=== PATIENT | male | born 2000 | race Caucasian/White ===

== ENCOUNTER 2020-01-19 12:29 | Emergency (ER) | payer BC ==
[~2020-01-19] VITALS: Ht 185.4 cm; Wt 60.0 kg
[2020-01-19] MEDS ORDERED: bisacodyl 5mg tablet.DR PO ONE (13:15)
[2020-01-19] MEDS ORDERED: ketorolac trometh. 30mg/ml inj. IM ONE (13:15)
[2020-01-19] MEDS ORDERED: ketorolac trometh inj. 60 MG/2 ML VIAL IM ONE (13:15)
[2020-01-19] MEDS ORDERED: acetaminophen 325mg tablet PO ONE (13:15)
[2020-01-19] MEDS ORDERED: ondansetron 4mg rapidly disintigrating tab PO ONE (13:15)
[2020-01-19 13:25] LABS: BASOPHILS % (AUTO) 0.4 % (0-1); EOSINOPHILS % (AUTO) 0.4 % (0-6); HEMATOCRIT 47.2 % (42.0-52.0); LYMPHOCYTES % (AUTO) 23.1 % (21-51); MEAN CORPUSCULAR HEMOGLOBIN 28.3 PG (27.0-31.0); MEAN CORPUSCULAR HGB CONC 33.8 g/dL (33.0-36.5); MEAN CORPUSCULAR VOLUME 83.8 FL (78-98); MEAN PLATELET VOLUME 7.6 FL (7.4-10.4); MONOCYTES # (AUTO) 0.9 X10'3 (0-0.9); MONOCYTES % (AUTO) 10.1 % (2-12); NEUTROPHILS # (AUTO) 5.6 X10'3 (1.8-7.7); PLATELET COUNT 300 X10'3 (140-440); RED BLOOD COUNT 5.64 X10'6 (4.70-6.10); RED CELL DISTRIBUTION WIDTH 13.4 % (11.5-14.5); WHITE BLOOD COUNT 8.5 X10'3 (4.5-11.0)
[2020-01-19 13:40] LABS: ALANINE AMINOTRANSFERASE 56 U/L (12-78); ALBUMIN 4.5 G/DL (3.4-5.0); ALBUMIN/GLOBULIN RATIO 1.2 (1.1-1.5); ALKALINE PHOSPHATASE 97 IU/L (20-180); ANION GAP 6 (8-16); ASPARTATE AMINO TRANSFERASE 43 U/L (10-37); BILIRUBIN,TOTAL 1.2 MG/DL (0.1-1.0); BLOOD UREA NITROGEN 12 MG/DL (7-18); BUN/CREATININE RATIO 12.9 (5.4-32.0); CALCIUM 9.3 MG/DL (8.5-10.1); CHLORIDE 103 MMOL/L (99-107); CREATININE 0.93 MG/DL (0.60-1.10); GLUCOSE 103 MG/DL (70-104); LIPASE 81 U/L (73-393); POTASSIUM 3.6 MMOL/L (3.5-5.1); SODIUM 137 MMOL/L (135-145); TOTAL CARBON DIOXIDE 27.9 MMOL/L (24-32); TOTAL PROTEIN 8.4 G/DL (6.4-8.2); eGFR > 90 ML/MIN
[2020-01-19] MEDS ORDERED: ONDA4TAB6 PO (13:58)
[2020-01-19] MEDS ORDERED: BISA-78 PO (13:58)
[2020-01-19 13:59] LABS: CLARITY,URINE SLIGHTLY CLOUDY (Clear); COLOR,URINE YELLOW (Yellow); GLUCOSE, URINE NEGATIVE (Neg); KETONES,URINE TRACE mg/dl (Neg); LEUKOCYTE ESTERASE ,URINE NEGATIVE (Neg); NITRITES, URINE NEGATIVE (Neg); OCCULT BLOOD,URINE NEGATIVE (Neg); PH,URINE >=9.0 (4.8-8.0); PROTEIN,URINE NEGATIVE (Neg)
[2020-01-19 14:02] LABS: UA COLLECTION TYPE CLN CATCH MIDSTREAM
[2020-01-19 14:10] LABS: AMORPHOUS PHOSPHATES 2+; BACTERIA,URINE NONE SEEN /HPF (Neg); MUCUS STRANDS FEW /LPF (Neg); RBC,URINE NONE SEEN /HPF (0-2); SQUAMOUS EPITHELIAL CELL,UR NONE SEEN /LPF (FEW); WBC,URINE NONE SEEN /HPF (0-4)
[2020-01-19 15:36] VITALS: BP 127/84
== END 2020-01-19 15:53 | disposition home or self-care (01) ==
LOC: ER 12:29
DX: R10.30 Lower abdominal pain, unspecified (principal); K59.00 Constipation, unspecified; R11.2 Nausea with vomiting, unspecified; Z79.899 Other long term (current) drug therapy
CPT/HCPCS: 36415; 80053; 81001; 83690; 85025; 96372; 99284; J1885

== ENCOUNTER 2020-10-14 00:02 | Emergency (ER) | payer BC, OTHER ==
[~2020-10-14] VITALS: Ht 185.4 cm; Wt 97.3 kg
[~2020-10-14 00:02] MED LIST: BISA-78 PO; ONDA4TAB6 PO
[2020-10-14 00:15] VITALS: BP 131/90
[2020-10-14] MEDS ORDERED: silver sulfadiazine cream 400gm jar TP STA (02:06)
[2020-10-14] MEDS ORDERED: TETanus/Pertussis (Acell)/Diphther VAC/PF (Tdap-Adult) 0.5ml syringe IMVAC ONE (02:10)
[2020-10-14] MEDS ORDERED: LIDOcaine 4% (40 mg/ml) topical solution 50ml TP ONE (02:10)
[2020-10-14] MEDS ORDERED: silver sulfadiazine cream 50gm TP STA (02:12)
[2020-10-14] MEDS ORDERED: SILV50CR31 TOP (02:21)
== END 2020-10-14 03:02 | disposition home or self-care (01) ==
LOC: ER 00:04
DX: T25.221A Burn of second degree of right foot, initial encounter (principal); F12.90 Cannabis use, unspecified, uncomplicated; Z79.899 Other long term (current) drug therapy; X12.XXXA Contact with other hot fluids, initial encounter; Y93.89 Activity, other specified; Y92.512 Supermarket, store or market as the place of occurrence of the external cause; Y99.0 Civilian activity done for income or pay
CPT/HCPCS: 16020; 90471; 90715; 99283; 99285

== ENCOUNTER 2025-03-12 01:51 | Emergency (ER) | payer OTHER ==
[~2025-03-12] VITALS: Ht 180.3 cm; Wt 104.0 kg
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
[2025-03-12 05:08] VITALS: BP 113/60; PULSE 78; RESP 20; TEMP 97.8; O2SAT 98
== END 2025-03-12 05:12 ==
LOC: ER 01:51
DX: F10.129 Alcohol abuse with intoxication, unspecified (principal); F12.90 Cannabis use, unspecified, uncomplicated; Y90.9 Presence of alcohol in blood, level not specified; Z79.899 Other long term (current) drug therapy
CPT/HCPCS: 70450; 72125; 99284; L0172